=== PATIENT | male | born 1990 | race Caucasian/White ===

== ENCOUNTER 2017-01-24 11:32 | Emergency (ER) | payer MEDICAID ==
[2017-01-24 12:19] LABS: Basophils # (auto) 0.1 uL; Basophils % (auto) 0.9 % (0.0-2.0); CONDITION Y; DEFINITIVE SEE PRINTOUT; Eosinophils # (auto) 0.7 uL; Eosinophils % (auto) 8.5 % (0.0-7.0); Hematocrit 42.8 % (41.0-53.0); Hemoglobin 14.1 g/dL (13.5-17.5); Lymphocytes # (auto) 2.5 uL; Lymphocytes % (auto) 29.3 % (10.0-50.0); Mean Corpuscular Hemoglobin 29.9 pg (28.0-32.0); Mean Corpuscular Volume 90.6 fL (80.0-100.0); Monocytes # (auto) 0.5 uL; Monocytes % (auto) 6.1 % (0.0-12.0); Neutrophils # (auto) 4.8 uL; Neutrophils % (auto) 55.2 % (37.0-80.0); Platelet Count (auto) 269 10^3/uL (140-450); Red Cell Distribution Width 14.1 % (11.6-16.0); White Blood Cell 8.7 10^3/uL (4.4-10.8)
[2017-01-24 13:18] LABS: Albumin 3.7 g/dL (3.4-5.0); BUN/Creatinine Ratio 7.1; Bilirubin, Total 0.3 mg/dL (0.2-1.0); Total Protein 6.8 g/dL (6.4-8.2)
[2017-01-24] MEDS ORDERED: traMADol HCL 50 MG TAB PO ONE (17:00)
[2017-01-24 17:28] VITALS: BP 140/60
== END 2017-01-24 17:39 | disposition home or self-care (01) ==
LOC: ER 11:32
DX: T67.3XXA Heat exhaustion, anhydrotic, initial encounter (principal); R53.1 Weakness; F17.210 Nicotine dependence, cigarettes, uncomplicated; R52 Pain, unspecified; F12.10 Cannabis abuse, uncomplicated; F15.10 Other stimulant abuse, uncomplicated; Z59.0 Homelessness; X58.XXXA Exposure to other specified factors, initial encounter; Y93.89 Activity, other specified; Y99.8 Other external cause status; Y92.89 Other specified places as the place of occurrence of the external cause
CPT/HCPCS: 36415; 80053; 85025